=== PATIENT | female | born 1995 | race Caucasian/White ===

== ENCOUNTER 2016-09-27 20:57 | Emergency (ER) | payer MEDICAID, OTHER ==
[2016-09-27 21:04] VITALS: BP 147/83
[2016-09-27] MEDS ORDERED: PENICILLIN V POTASSIUM 250 MG TABLET PO ONE (21:15)
[2016-09-27] MEDS ORDERED: HYDROcodone/ACETAMINOPHEN 1 EACH TABLET PO ONE (21:15)
[2016-09-27] MEDS ORDERED: PENICILLIN V POTASSIUM 250 MG TABLET ONE (21:19)
[2016-09-27] MEDS ORDERED: HYDROcodone/ACETAMINOPHEN 1 EACH TABLET ONE (21:19)
--- NOTE | 2016-09-27 21:22 | ERNOTE ---
ENT HPI Date of Service: 09/27/16 Time Seen by Provider: 09/27/16 21:06 Source: patient, RN notes reviewed Exam Limitations: no limitations - Immun/Allergies/Home Medications Immunizations: IMMUNIZATION HX Immunizations Up to Date Yes History of Influenza Vaccine No Hx Pneumococcal Vaccination No Allergies/Adverse Reactions: Allergies Allergy/AdvReac Type Severity Reaction Status Date / Time No Known Allergies Allergy Verified 09/27/16 21:04 Home Medications: HOME MEDICATIONS Ibuprofen [Motrin] 600 mg PO Q6H PRN #0 tablet 09/27/13 [Last Taken Unknown] Penicillin V Potassium [Pen-Vee K] 500 mg PO Q8H #30 tab 09/27/16 [Last Taken Unknown] - History of Present Illness Narrative: 21 y/o female ambulatory to the ED for dental pain in her right upper jaw that began about a week ago. She has been taking ibuprofen without improvement. She has been trying to get a dentist appointment without success. ENT Location: Present: dental Prearrival Treatment: Present: over the counter meds Associated Symptoms - ENT: Reports: poor solid intake, facial pain/swelling, tooth pain, headache. Denies: fever, poor fluid intake, cough, sore throat, nasal congestion/drainage, jaw swelling Prior Treament: Denies: recently seen, similar symptoms before Review of Systems - Review of Systems Constitutional: Present: See HPI EYE: Present: no symptoms reported ENT: Present: See HPI Respiratory: Absent: shortness of breath, cough Cardiology: Present: no symptoms reported Gastrointestinal/Abdominal: Absent: nausea, vomiting Genitourinary: Present: no symptoms reported Musculoskeletal: Absent: muscle pain, neck pain Skin: Absent: rash, lesions, lumps Neurological: Present: See HPI Endocrine: Present: no symptoms reported Hematologic/Lymphatic: Present: no symptoms reported Psych: Present: no symptoms reported - Patient's Past Medical History Patient History - Medical: No pertinent hx Patient History - Cardiac/Respiratory: No pertinent hx Patient History - Cancer: No Hx of Cancer Patient History - Surgical Procedures: , T & A Patient History - Other: None LMP (females 10-50): other - Social History Living Situations: home Psych History: No pertinent hx Smoking Status: Current every day smoker - Immunizations Immunizations Up to Date: Yes Hx Pneumococcal Vaccination: No History of Influenza Vaccine: No Physical Exam - Physical Exam General Appearance: Present: wd/wn, alert, mild distress, crying Eye Exam: Normal inspection: bilateral Ears, Nose, Throat: Present: normal pharynx, other - Tooth #2 with moderate to severe decay, tender to palpation, surrounding gum tissue erythematous, no focal abscess. Absent: abnormal TM (R), abnormal TM (L), nasal congestion, sinus pain/drainage, dry mucous membranes Neck: Present: normal inspection, nontender, supple, full range of motion, lymphadenopathy (R). Absent: lymphadenopathy (L) Respiratory: Present: no respiratory distress, normal breath sounds, no accessory muscle use, lungs clear Cardiovascular/Chest: Present: regular rate, rhythm, no murmur Neurological Exam: Present: alert, oriented, normal mood/affect, no motor/ sensory deficits Skin Exam: Present: normal color, warm/dry ED Progress - Vital Signs Patient's Vital Signs:: I have reviewed the patient's vital signs. Vital Signs: Vital Signs 09/27/16 21:00 Temperature 37.0 C Pulse Rate 82 Respiratory 16 Rate Blood Pressure 147/83 O2 Sat by Pulse 99 Oximetry - Progress/Reassessment Chief Complaint: Dental Problem Progress:: Improved Departure Clinical Impression: Dental caries - Departure Disposition: Home Follow Up Needed Condition: Stable Instructions: Dental Caries, [id number] Additional Instructions: Ibuprofen and/or Tylenol for pain See dentist STEPHEN Referrals: Ольга Noble FNP [Primary Care Provider] - Prescriptions: Penicillin V Potassium [Pen-Vee K] 500 mg PO Q8H #30 tab
== END 2016-09-27 21:20 | disposition home or self-care (01) ==
LOC: ER 20:57
DX: K02.9 Dental caries, unspecified (principal); F17.200 Nicotine dependence, unspecified, uncomplicated

== ENCOUNTER 2016-10-06 18:55 | Emergency (ER) | payer OTHER ==
[2016-10-06] MEDS ORDERED: KETOROLAC TROMETHAMINE 60 MG/2 ML VIAL IM ONE ×2 (19:37→19:41)
[2016-10-06] MEDS ORDERED: CLINDAMYCIN PHOSPHATE 150 MG/ML VIAL IM ONE (19:37)
--- NOTE | 2016-10-06 19:45 | ERNOTE ---
ENT [facility] Date of Service: 10/06/16 Presenting Symptoms: dental pain Time Seen by Provider: 10/06/16 19:32 Source: patient Exam Limitations: no limitations - Immun/Allergies/Home Medications Immunizations: IMMUNIZATION HX Immunizations Up to Date Yes History of Influenza Vaccine Yes Hx Pneumococcal Vaccination No Allergies/Adverse Reactions: Allergies Allergy/AdvReac Type Severity Reaction Status Date / Time No Known Allergies Allergy Verified 10/06/16 19:04 Home Medications: HOME MEDICATIONS Penicillin V Potassium [Pen-Vee K] 500 mg PO Q8H #30 tab 09/27/16 [Last Taken ] Nabumetone 750 mg PO BID #14 tablet 09/28/16 [Last Taken Unknown] Clindamycin HCl [Cleocin HCl] 300 mg PO Q6H #40 capsule 10/06/16 [Last Taken Unknown] Naproxen [Naprosyn] 500 mg PO BID PRN #60 tab 10/06/16 [Last Taken Unknown] - History of Present Illness Narrative: Pt. comes in with c/o L maxillary sinus pain for two days. Pt. recently had a R maxillary tooth pulled but states that she has other teeth that were also causing problems for her. Pt. denies any SOB, CP, NVD, fever, pt. does state that she has nasal congestion as well. Pt. denies any alleviating factors despite taking Tylenol and states that eating and drinking exacerbates the pain. Review of Systems - Review of Systems Constitutional: Present: no symptoms reported. Absent: recent illness, fever, chills, weakness, fatigue, malaise EYE: Present: no symptoms reported ENT: Present: nose congestion, other - L maxillary dental pain. Absent: ear pain, sore throat Respiratory: Absent: shortness of breath, cough, wheezing Cardiology: Present: no symptoms reported. Absent: chest pain, palpitations, edema Gastrointestinal/Abdominal: Present: no symptoms reported. Absent: nausea, vomiting, diarrhea Genitourinary: Present: no symptoms reported Musculoskeletal: Present: no symptoms reported. Absent: back pain, joint pain Skin: Present: no symptoms reported Neurological: Present: no symptoms reported. Absent: headache, dizziness/light- headedness, numbness, tingling All Other Systems: All systems neg except as marked - Patient's Past Medical History Patient History - Medical: No pertinent hx Patient History - Cardiac/Respiratory: No pertinent hx Patient History - Cancer: No Hx of Cancer Patient History - Surgical Procedures: , T & A Patient History - Other: None LMP (females 10-50): mirena - Family History Mother Family History - Medical: Other Family History - Cardiac/Respiratory: Asthma, CVA/Stroke Family History - Cancer: No pertinent family hx - Social History Living Situations: home Abuse History: No History of abuse Psych History: No pertinent hx Smoking Status: Current every day smoker Alcohol Use: none Drug Use: none - Immunizations Immunizations Up to Date: Yes Hx Pneumococcal Vaccination: No History of Influenza Vaccine: Yes Physical Exam - Physical Exam General Appearance: Present: wd/wn, alert, no apparent distress Eye Exam: Normal inspection: bilateral, PERRL: bilateral, EOMI: bilateral Ears, Nose, Throat: Present: sinus pain/drainage - L frontal and maxillary, normal pharynx, other - L eye teeth with caries below pulp Neck: Present: normal inspection, nontender. Absent: lymphadenopathy (R), lymphadenopathy (L) Respiratory: Present: no respiratory distress, normal breath sounds, no accessory muscle use, chest nontender, lungs clear Cardiovascular/Chest: Present: regular rate, rhythm, no murmur, normal peripheral pulses Extremity Exam: Present: normal inspection, non-tender, normal range of motion, no edema Neurological Exam: Present: alert, oriented, normal mood/affect, no motor/ sensory deficits Skin Exam: Present: normal color, warm/dry. Absent: pallor, skin rash ED Progress - Date and Time Seen: Date and Time: 10/06/16 19:41 Feel that pt. symptoms are related to sinusitis which I feel is secondary to her tooth caries. Pt. has appointment next week with dentist so will start on abx and NSAIDS. - Vital Signs Patient's Vital Signs:: I have reviewed the patient's vital signs. Vital Signs: Vital Signs 10/06/16 19:00 Temperature 37.1 C Pulse Rate 105 H Respiratory 18 Rate Blood Pressure 146/89 O2 Sat by Pulse 100 Oximetry - Progress/Reassessment Chief Complaint: Dental Problem Progress:: Improved Departure Clinical Impression: Dental caries Sinusitis Qualifiers: Sinusitis location: maxillary Chronicity: acute Recurrence: recurrent Qualified Code(s): J01.01 - Acute recurrent maxillary sinusitis - Departure Disposition: Home self-care Condition: Good Instructions: Sinusitis, Adult, [id number] Additional Instructions: Please follow up with dentist as planned call to see if you can get in sooner Referrals: Ольга Noble FNP [Primary Care Provider] - Prescriptions: Clindamycin HCl [Cleocin HCl] 300 mg PO Q6H #40 capsule Naproxen [Naprosyn] 500 mg PO BID PRN #60 tab PRN Reason: Pain
[2016-10-06 20:11] VITALS: BP 120/83
== END 2016-10-06 20:23 | disposition home or self-care (01) ==
LOC: ER 18:55
DX: K02.9 Dental caries, unspecified (principal); J01.01 Acute recurrent maxillary sinusitis; F17.200 Nicotine dependence, unspecified, uncomplicated

== ENCOUNTER 2017-01-16 01:15 | Emergency (ER) | payer OTHER ==
[2017-01-16 01:29] VITALS: BP 134/79
--- NOTE | 2017-01-16 01:47 | ERNOTE ---
Abdominal HPI - Narrative Date of Service: 01/16/17 - General Chief Complaint: Abdominal Pain Time Seen by Provider: 01/16/17 01:34 Source: patient Exam Limitations: no limitations - - Immun/Allergies/Home Medications Immunizatons: IMMUNIZATION HX Immunizations Up to Date Yes History of Influenza Vaccine No Hx Pneumococcal Vaccination No Allergies/Adverse Reactions: Allergies No Known Allergies Allergy (Verified 01/16/17 01:29) Home Medications: HOME MEDICATIONS Ibuprofen 600 mg PO Q4H PRN 01/16/17 [Last Taken 01/15/17 20:00] Levonorgestrel [Mirena] 1 each IY DAILY 01/16/17 [Last Taken Unknown] - History of Present Illness Narrative: 21 year old that has been having lower abdominal pain that is described as being sharp and intermittent for three weeks. Denies any fevers, chills, change in bowel habits, dysuria. She believes that the pain is due to the presence of her Merena IUD; and has been present for two years. Complaint of metrorrhagia; wherein has been using about six pads per day. No history of shortness of breath. She has been taking Ibuprofen for the pain every six hours as needed. The patient has not gotten in touch with her [facility] physician regarding the pain. Date (Duration): 01/16/17 Time (Timing): 01:53 Timing: intermittent Quality: mild Activities at Onset: rest Modifying Factors - (Improves): Present: other - nothing Modifying Factors - (Worsens): Present: other - nothing Associated Symptoms: Present: denies symptoms Prior Abdominal Problems: Present: none Review of Systems - Review of Systems Constitutional: Present: no symptoms reported EYE: Present: no symptoms reported ENT: Present: no symptoms reported Respiratory: Present: no symptoms reported Cardiology: Present: no symptoms reported Gastrointestinal/Abdominal: Present: See HPI Genitourinary: Present: See HPI Musculoskeletal: Present: no symptoms reported Skin: Present: no symptoms reported Neurological: Present: no symptoms reported Endocrine: Present: no symptoms reported Hematologic/Lymphatic: Present: no symptoms reported Psych: Present: no symptoms reported - Patient's Past Medical History Patient History - Medical: No pertinent hx Patient History - Cardiac/Respiratory: No pertinent hx Patient History - Cancer: No Hx of Cancer Patient History - Surgical Procedures: , T & A Patient History - Other: None LMP (females 10-50): other - Family History Mother Family History - Medical: Other Family History - Cardiac/Respiratory: Asthma, CVA/Stroke Family History - Cancer: No pertinent family hx - Social History Living Situations: home Abuse History: No History of abuse Psych History: No pertinent hx Smoking Status: Current every day smoker Alcohol Use: occasionally Drug Use: none - Immunizations Immunizations Up to Date: Yes Hx Pneumococcal Vaccination: No History of Influenza Vaccine: No Physical Exam - Physical Exam General Appearance: Present: no apparent distress Head Exam: Present: normal inspection Eye Exam: Normal inspection: bilateral Ears, Nose, Throat: Present: normal ENT inspection Neck: Present: normal inspection Respiratory: Present: no respiratory distress Cardiovascular/Chest: Present: regular rate, rhythm Gastrointestinal/Abdominal: Present: nontender Back Exam: Present: normal inspection Extremity Exam: Present: normal inspection Neurological Exam: Present: alert, oriented, normal mood/affect Skin Exam: Present: normal color ED Progress - Results and Orders Patient's Lab Results:: I have reviewed the patient's lab results. - Vital Signs Patient's Vital Signs:: I have reviewed the patient's vital signs. Vital Signs: Vital Signs 01/16/17 01:26 Temperature 36.6 C Pulse Rate 81 Respiratory 16 Rate Blood Pressure 134/79 O2 Sat by Pulse 99 Oximetry - Progress/Reassessment Chief Complaint: Abdominal Pain Progress:: Unchanged Departure Clinical Impression: Menometrorrhagia - Departure Disposition: Home self-care Condition: Fair Instructions: Metrorrhagia, [id number] Print Language: Somali Additional Instructions: Follow up with your [facility] physician. Referrals: Ольга Noble FNP [Primary Care Provider] -
[2017-01-16 01:51] LABS: Hematocrit 39.7 % (37.0-47.0); Hemoglobin 13.7 gm/dL (12.5-16.0); Mean Cell Volume 83.4 fl (78-100); Mean Corpuscular Hemoglobin 28.8 pg (27-31); Mean Corpuscular Hgb Conc 34.5 g/dl (32-36); Mean Platelet Volume 10.5 fl (6.0-9.5); Neutrophil # 4.4 K/mm3 (1.3-6.0); Neutrophil % 51.1 % (42-75.0); Platelet Count 254 K/mm3 (150-450); Red Blood Count 4.76 M/mm3 (4.2-5.4); Red Cell Distribution Width 11.8 % (11.5-14.0); White Blood Count 8.6 K/mm3 (4.0-10.5)
[2017-01-16] MEDS ORDERED: ACETAMINOPHEN 500 MG TABLET PO ONE (02:46)
== END 2017-01-16 03:00 | disposition home or self-care (01) ==
LOC: ER 01:15
DX: N92.1 Excessive and frequent menstruation with irregular cycle (principal); F17.200 Nicotine dependence, unspecified, uncomplicated

== ENCOUNTER 2018-09-23 13:16 | Inpatient (IN) ==
[2018-09-23] MEDS ORDERED: RINGER'S SOLUTION,LACTATED 1,000 ML IV ONE (14:00)
[2018-09-23] MEDS ORDERED: ceFAZolin SODIUM/DEXTROSE,ISO 2 GM/50 ML BAG IV ONE (14:28)
[2018-09-23] MEDS ORDERED: OXYTOCIN 20 UNITS in RINGER'S SOLUTION,LACTATED 1,000 ML IV ONE (14:28)
[2018-09-23] MEDS ORDERED: AZITHROMYCIN 500 MG in DEXTROSE 5 % IN WATER 250 ML IV ONE ×2 (14:50)
--- NOTE | 2018-09-23 14:50 | HP ---
Chief Complaint - Chief Complaint Date of Service: 09/23/18 Time of Service: 14:38 Chief Complaint: contractions and LOF History of Present Illness: 23 yo at 38 4/7 weeks presents to L&D complaining of increased intensity and frequency of contractions with LOF since around 0500. Patient has been having contractions since MN but increased to 8/10 by 1300 today. Clear LOF has been continuous since 0500. 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 Rh positive Rubella immune GBS negative. Medical History (Updated 05/26/18 @ 16:24 by Gigi Silver DO) Anxiety Onset Date: Unknown No tx Ovarian cyst Onset Date: 2016 GERD (gastroesophageal reflux disease) Onset Date: ~03/08/13 Genital herpes Onset Date: ~11/2011 Tobacco abuse Onset Date: ~03/08/13 Wrist pain Onset Date: ~10/31/11 persistent Acute pharyngitis Onset Date: Unknown Amenorrhea, secondary Onset Date: ~05/16/12 Anemia Onset Date: Unknown Bronchitis Onset Date: Unknown Cough Onset Date: ~02/13/12 Hand pain Onset Date: ~01/18/12 Influenza Onset Date: ~2012 treated with Tamiflu Missed Onset Date: ~06/12/12 delivery Onset Date: ~09/25/13 36.3 weeks premature rupture of membranes Onset Date: ~09/24/14 Rhinitis Onset Date: ~02/13/12 Sprain and strain of left wrist Onset Date: ~11/30/12 Vulvar candidiasis Onset Date: ~08/14/13 Surgical History: Surgical History (Updated 02/08/18 @ 12:13 by Mercy Mott MD) H/O nasal septoplasty Onset Date: ~01/27/11 deviated septum, nasal obstruction with turbinate hypertrophy. bilateral submucosal resection of inferior turbinates History of tonsillectomy and adenoidectomy Onset Date: ~01/2010 Hx of section Onset Date: ~2014 Family History: Family History (Updated 02/08/18 @ 11:32 by Megan Tyler RN) Father Crohn disease Hypertension Mother Diabetes Type I Asthma Myocardial infarction Hypertension GERD (gastroesophageal reflux disease) Grandfather Hypertension maternal [place] Grandmother Hypertension maternal Cancer lymphoma Grandmother Pancreatitis paternal Social History: Preferred Language Bangladeshi Smoking Status Current every day smoker Abuse History No History of abuse Psych History No pertinent hx (Last Updated 09/20/18 @ 16:29 by Mehdi Lozada DO) No Social History Section defined Review Of Systems (GEN) - Review of Systems Generalized/Overall Review: Present: No Symptoms Reported EENTM: Present: No Symptoms Reported Respiratory: Present: No Symptoms Reported Cardiac: Present: No Symptoms Reported Abdominal: Present: No Symptoms Reported, Other - contractions Genitourinary: Present: Other - LOF - since 0500, clear Musculoskeletal: Present: No Symptoms Reported Neurological: Present: No Symptoms Reported Skin: Present: No Symptoms Reported Endocrine: Present: No Symptoms Reported Immunizations: IMMUNIZATION HX Immunizations Up to Date Yes History of Influenza Vaccine Yes Hx Pneumococcal Vaccination No Allergies/Adverse Reactions: Allergies Allergy/AdvReac Type Severity Reaction Status Date / Time No Known Allergies Allergy Verified 09/23/18 13:22 Home Medications: HOME MEDICATIONS valacyclovir 1 gram tablet 1,000 mg PO DAILY #30 tab 09/06/18 [Last Taken Unknown] Exam - Exam Vital Signs: Vital Signs - Last Taken Temp 36.6 C 09/23/18 13:20 Pulse 81 09/23/18 13:20 Resp 20 09/23/18 13:20 BP 145/87 H 09/23/18 13:20 Pulse Ox 99 09/23/18 13:20 Constitutional: Present: Alert, Oriented x3, Cooperative, Mild distress ENT Exam: Present: hearing grossly normal Breasts: Present: Exam deferred Respiratory: Present: lungs clear, no respiratory distress Cardiovascular/Chest: Present: normal peripheral pulses, regular rate, rhythm, no edema Abdomen: Present: soft, no rebound tenderness, other - gravid. Absent: distended /Rectal: Present: Other - 1/100/-3 Extremity: Present: non-tender, no pedal edema, no calf tenderness Skin Exam: Present: normal color, warm/dry, no cyanosis Neurologic: Present: alert, normal mood/affect, oriented x 3 Appearance: Present: appropriate appearance, appropriate insight Eye contact: Present: cooperative, good eye contact, normal speech Thoughts: Present: normal thought pattern, no apparent hallucination Assessment/Plan - Assessment/Plan (1) Labor established Assessment: Admit for RLTCS with possible abdominal scar revision. Problem: Acute (2) Previous section Problem: Chronic (3) History of gestational hypertension Problem: Chronic (4) HSV antigen DIF positive Problem: Chronic (5) SROM (spontaneous rupture of membranes) Problem: Acute (6) Smoker Problem: Chronic
--- NOTE | 2018-09-23 15:01 | ANES ---
Anesthesia Pre Procedure Eval Vitals/Labs: Last Vital Signs Temp 36.6 C 09/23/18 13:20 Pulse 81 09/23/18 13:20 Resp 20 09/23/18 13:20 BP 145/87 H 09/23/18 13:20 Pulse Ox 99 09/23/18 13:20 HOME MEDICATIONS valacyclovir 1 gram tablet 1,000 mg PO DAILY #30 tab 09/06/18 [Last Taken Unknown] Allergies/Adverse Reactions: Allergies Allergy/AdvReac Type Severity Reaction Status Date / Time No Known Allergies Allergy Verified 09/23/18 13:22 - Planned Procedure Planned Procedure: Repeat csection Medication List Reviewed:: Yes Allergies Verified: Yes Medical History (Updated 09/23/18 @ 14:50 by Mehdi Lozada DO) Anxiety Onset Date: Unknown No tx Ovarian cyst Onset Date: 2016 GERD (gastroesophageal reflux disease) Onset Date: ~03/08/13 Genital herpes Onset Date: ~11/2011 Tobacco abuse Onset Date: ~03/08/13 Wrist pain Onset Date: ~10/31/11 persistent Acute pharyngitis Onset Date: Unknown Amenorrhea, secondary Onset Date: ~05/16/12 Anemia Onset Date: Unknown Bronchitis Onset Date: Unknown Cough Onset Date: ~02/13/12 Hand pain Onset Date: ~01/18/12 Influenza Onset Date: ~2012 treated with Tamiflu Missed Onset Date: ~06/12/12 delivery Onset Date: ~09/25/13 36.3 weeks premature rupture of membranes Onset Date: ~09/24/14 Rhinitis Onset Date: ~02/13/12 Sprain and strain of left wrist Onset Date: ~11/30/12 Vulvar candidiasis Onset Date: ~08/14/13 Surgical History (Updated 09/23/18 @ 14:50 by Mehdi Lozada DO) H/O nasal septoplasty Onset Date: ~01/27/11 deviated septum, nasal obstruction with turbinate hypertrophy. bilateral submucosal resection of inferior turbinates History of tonsillectomy and adenoidectomy Onset Date: ~01/2010 Hx of section Onset Date: ~2014 Family History (Updated 02/08/18 @ 11:32 by Megan Tyler RN) Father Crohn disease Hypertension Mother Diabetes Type I Asthma Myocardial infarction Hypertension GERD (gastroesophageal reflux disease) Grandfather Hypertension maternal [place] Grandmother Hypertension maternal Cancer lymphoma Grandmother Pancreatitis paternal - Family Anesthesia History Family History:: no untoward family reactions to anesthesia, no familial bleeding tendencies, no family history of clotting disorders, no family history of premature - Airway/Neck/Teeth Within Normal Limits:: Yes Teeth Condition: poor condition Mallampatti Score: 2 Thyromental (T-M) distance: > 6 cm Mandibulo Hyoid distance: > 3 cm - Respiratory Respiratory Physical: lungs clear Smoking Status: Current every day smoker Discussed smoking cessation including day of surgery: Yes Sleep Apnea currently treated: No Sleep Apnea by current assessment: No Discussed Risks/Treatment of GEENA: No - Cardiovascular Tolerate Activity: Good Heart Sounds: S1 & S2, Regular - Anesthesia Assessment and Plan ASA Class: PS, II, E Anesthesia Type Plan: Spinal - Bilateral ultrasound guised TAP blocks for postop analgesia
[2018-09-23 15:03] LABS: Cocaine Ur Negative (NEGATIVE); Urine Barbiturate Negative (NEGATIVE); Urine Benzodiazepines Negative (NEGATIVE); Urine Opiates Negative (NEGATIVE); Urine PCP Negative (NEGATIVE); Urine THC Negative (NEGATIVE)
--- NOTE | 2018-09-23 16:35 | ANES ---
Post Anesthesia Discharge - Transfer of Care Transfer of Care handoff given to nurse: Yes - Discharge from PACU Discharge from PACU when meets criteria: Yes - Discharge to ASU Discharge to ASU-no complications/pt stable: Yes
[2018-09-23] MEDS ORDERED: SENNOSIDES 8.6 MG TABLET PO PRN (16:36)
[2018-09-23] MEDS ORDERED: ONDANSETRON HCL/PF 2 MG/ML VIAL IV PRN (16:36)
[2018-09-23] MEDS ORDERED: SIMETHICONE 80 MG TAB.CHEW PO PRN (16:36)
[2018-09-23] MEDS ORDERED: ACETAMINOPHEN 325 MG TABLET PO PRN (16:36)
[2018-09-23] MEDS ORDERED: BISACODYL 10 MG SUPP.RECT RC PRN (16:36)
--- NOTE | 2018-09-23 16:43 | OR ---
Operative Report - Dictated Report Narrative: Indication: 23-year-old 04 para 1112 at 38-4/7 weeks with prior section 2 presents to labor and delivery in active labor with spontaneous rupture of membranes. status: Planned Pre Operative Diagnosis: 38-4/7 week intrauterine , prior section 2, labor with spontaneous rupture of membranes Post Operative Diagnosis: Same. Procedure: Repeat low transverse section. Surgeon: Adrian Lozada DO Barber Stylist: OR Staff Anesthesia: Spinal, TAP block Estimated Blood Loss: 500 mL Urine Output: 300 mL clear urine Fluids Replacement: 1000 mL Drains: Henry to gravity Surgical Complications: None Specimens: Placenta to freezer Findings: Male born at 1541 on 09/23/2019 with Apgars 8 and 9, weighing 2509 g in cephalic presentation. Normal uterus, tubes, ovaries Technique: The patient was taken to the operating room and placed in dorsal supine position with a left lateral tilt. After adequate spinal anesthesia, henry catheter inserted, SCDs placed, 2 g of Ancef, and 500 mg of Zithromax given preoperatively, the abdominal cavity was entered using sharp and blunt dissection. Two rolled laps were placed in the pericolic gutters on either side of the uterus. A transverse incision was made in the lower uterine segment and extended laterally and upwardly with digital traction. Clear fluid was noted upon amniotomy. The was delivered easily. With vigorously crying infant, cord clamping was delayed approximately 30 seconds. The cord was clamped and cut and infant was handed off to awaiting signal circuit designer. The placenta was allowed to deliver spontaneously. The uterus was cleared of clot and debris. Uterine incision was closed with 0 Vicryl using a running stitch. A second imbricating layer was placed. Bleeding on the right side of the incision was controlled with a single [id number] 0 Vicryl suture. Excellent hemostasis was noted. The rolled laps were removed from the abdominal cavitiy. The peritoneum was closed with a running 3-0 Monocryl. The same suture was used to approximate the rectus and pyramidalis muscles. The fascia was closed with a running 0 Vicryl. The subcutaneous layer was closed with a running 3-0 Monocryl. The same suture was used to approximate the subdermal layer. The skin was closed with a running 4-0 Monocryl and Dermabond. Sponge, lap, needle, and instrument count were correct x 2. Disposition: To post anesthesia care unit in good condition History for MU History for MU Definition: * The number of deliveries resulting in a live the patient experienced prior to current hospitalization * The previous delivery of live twins or any live multiple gestation is considered one live event. *If primagravida or nulliparous is documented select zero for the number of previous live births. Live Events: Live Events: 2
--- NOTE | 2018-09-23 17:05 | ANES ---
Anesthesia Procedure Note Procedure Note: ANESTHESIA PROCEDURE NOTE Date of Procedure: 09/23/2018. Time of procedure: 1450. Performed by: Rommel Patel [facility] Customer Service Associate: None. Preprocedure diagnosis: Prior . Post procedure diagnosis: Same. Procedure: Bilateral ultrasound-guided transversus abdominis plane block for postop analgesia. Indications: The patient is a 23 -year-old female post section. Findings: See below. Details of the procedure: ChloraPrep was used on the patient's abdomen and the procedure was performed under sterile technique. The right abdominal fascial layer between the internal oblique muscle and the transversus abdominis muscles was identified under ultrasound guidance. A 21-gauge 4 inch block needle was inserted under ultrasound guidance to the target fascial plane. 15 mL's of 0.5% bupivacaine plus epinephrine 1:200,000 was injected after negative aspiration for blood. The needle was removed intact and the procedure was then repeated at the left side. No complications were noted. The images were retained in the hospital medical database . EBL: Minimal. Fluids: N/A. Specimen: N/A. Post procedure condition: The patient tolerated the procedure well. No complications were noted. Thank you for this consultation. Rommel Patel CRNA
--- NOTE | 2018-09-23 17:06 | ANES ---
Post Anesthesia Assessment - Vital Signs Vitals: Last Vital Signs Temp 36.7 C 09/23/18 17:00 Pulse 77 09/23/18 17:00 Resp 16 09/23/18 17:00 BP 128/74 09/23/18 17:00 Pulse Ox 99 09/23/18 17:00 Airway Patency: Normal - Mental Status Level Of Consciousness: Awake - Pain Level Pain Score: 2 - N/V Assessment Nausea/Vomiting Presence: None Dehydration:: No
[2018-09-23] MEDS: oxyCODONE HCL/ACETAMINOPHEN 1 TAB TABLET PO PRN ×3 (17:37→23:58)
[2018-09-23] MEDS: IBUPROFEN 800 MG TABLET PO PRN ×2 (17:37→23:58)
[2018-09-23] MEDS: DOCUSATE SODIUM 100 MG CAPSULE PO SCH (21:01)
[2018-09-23] MEDS: ENOXAPARIN SODIUM 40 MG/0.4 ML SYRG SC SCH (21:55)
[2018-09-24] MEDS: oxyCODONE HCL/ACETAMINOPHEN 1 TAB TABLET PO PRN ×7 (04:02→23:25)
[2018-09-24] MEDS: IBUPROFEN 800 MG TABLET PO PRN ×3 (06:44→20:41)
[2018-09-24] MEDS: DOCUSATE SODIUM 100 MG CAPSULE PO SCH ×2 (10:49→20:41)
--- NOTE | 2018-09-24 18:14 | PN ---
Subjective - Date and Time Seen Date: 09/24/18 Time: 18:13 Objective - Vitals Vitals: Last Vital Signs Temp 36.6 C 09/24/18 13:00 Pulse 83 09/24/18 13:00 Resp 16 09/24/18 13:00 BP 123/69 09/24/18 13:00 Pulse Ox 99 09/24/18 13:00 Patient denies complaints. Tolerating regular diet. Ambulating without difficulty. Pain well controlled. Lochia wnl. Abdomen - soft, appropriately tender Incision - clean, dry, intact Uterus - firm, at umbilicus -1 No calf tenderness Impression: Post op day #1 s/p repeat section. Plan: Continue routine post-operative/ care [facility] Physician Documentation - Urinary Catheter Management Urethral ([facility]man) Date of Insertion: 09/23/18 Time of Insertion: 15:20 Assessment/Plan - Problems/Diagnosis (1) Labor established Problem: Acute (2) Previous section Problem: Chronic (3) History of gestational hypertension Problem: Chronic (4) HSV antigen DIF positive Problem: Chronic (5) SROM (spontaneous rupture of membranes) Problem: Acute (6) Smoker Problem: Chronic
[2018-09-24] MEDS: ENOXAPARIN SODIUM 40 MG/0.4 ML SYRG SC SCH (22:07)
[2018-09-25] MEDS: IBUPROFEN 800 MG TABLET PO PRN ×3 (02:43→17:14)
[2018-09-25] MEDS: oxyCODONE HCL/ACETAMINOPHEN 1 TAB TABLET PO PRN ×4 (02:43→18:35)
[2018-09-25] MEDS: DOCUSATE SODIUM 100 MG CAPSULE PO SCH ×2 (08:47→21:18)
--- NOTE | 2018-09-25 09:03 | PN ---
Objective - Vitals Vitals: Last Vital Signs Temp 36.4 C 09/25/18 06:28 Pulse 95 09/25/18 06:28 Resp 14 09/25/18 06:28 BP 118/79 09/25/18 06:28 Pulse Ox 98 09/25/18 06:28 Patient denies complaints. Ambulating well. Tolerating regular diet. Pain well controlled. Lochia wnl. Abdomen - soft, appropriately tender Incision - clean, dry, intact Uterus - firm, at umbilicus -2 No calf tenderness Impression: Post op day #2 s/p repeat section. Plan: Continue routine post-operative/ care [facility] Physician Documentation - Urinary Catheter Management Urethral (Bowman) Date of Insertion: 09/23/18 Time of Insertion: 15:20 Assessment/Plan - Problems/Diagnosis (1) Labor established Problem: Acute (2) Previous section Problem: Chronic (3) History of gestational hypertension Problem: Chronic (4) HSV antigen DIF positive Problem: Chronic (5) SROM (spontaneous rupture of membranes) Problem: Acute (6) Smoker Problem: Chronic
[2018-09-25] MEDS: ENOXAPARIN SODIUM 40 MG/0.4 ML SYRG SC SCH (21:18)
[2018-09-26] MEDS: oxyCODONE HCL/ACETAMINOPHEN 1 TAB TABLET PO PRN ×2 (00:03→07:06)
[2018-09-26] MEDS: IBUPROFEN 800 MG TABLET PO PRN ×2 (00:03→07:06)
[2018-09-26] MEDS: DOCUSATE SODIUM 100 MG CAPSULE PO SCH ×2 (07:06→08:44)
[2018-09-26 08:48] VITALS: BP 125/79
--- NOTE | 2018-09-26 09:44 | PN ---
Subjective - Date and Time Seen Date: 09/26/18 Time: 09:44 Objective - Vitals Vitals: Last Vital Signs Temp 36.7 C 09/26/18 07:00 Pulse 105 H 09/26/18 07:00 Resp 14 09/26/18 07:00 BP 125/79 09/26/18 08:48 Pulse Ox 100 09/26/18 07:00 Patient denies complaints. Ambulating without difficulty. Tolerating regular diet. Pain well controlled. Lochia wnl. Abdomen - soft, appropriately tender Incision - clean, dry, intact Uterus - firm, at umbilicus -3 No calf tenderness Impression: Post op day #3 s/p repeat section. Plan: Routine discharge instructions C[facility]i Physician Documentation - Urinary Catheter Management Urethral ([facility]man) Date of Insertion: 09/23/18 Time of Insertion: 15:20 Assessment/Plan - Problems/Diagnosis (1) Labor established Problem: Acute (2) Previous section Problem: Chronic (3) History of gestational hypertension Problem: Chronic (4) HSV antigen DIF positive Problem: Chronic (5) SROM (spontaneous rupture of membranes) Problem: Acute (6) Smoker Problem: Chronic
== END 2018-09-26 11:45 | disposition home or self-care (01) | DRG 787 ==
LOC: OBCLINIC 13:16 → OB 13:52
PROVIDERS: ADMIT Obstetrics & Gynecology; ATTEND Obstetrics & Gynecology
CPT/HCPCS: 59025; 80307